=== PATIENT | female | born 1985 | race Caucasian/White ===

== ENCOUNTER 2020-04-24 06:48 | Outpatient (RCR) | payer BC, MEDICAID | END 2020-07-23 | disposition home or self-care (01) | LOC: PREOP 06:48 | PROVIDERS: ATTEND Obstetrics & Gynecology | DX: Z01.818 Encounter for other preprocedural examination (principal) ==

== ENCOUNTER 2023-07-28 12:36 | Emergency (ER) | payer SELFPAY ==
[~2023-07-28] VITALS: Ht 167 cm; Wt 69.0 kg
[2023-07-28] MEDS ORDERED: KETOROLAC INJ 15 MG/ML VIAL IVP ONE (13:00)
[2023-07-28] MEDS ORDERED: NS IV 1000 ML 1,000 ML IV SCH ×2 (13:00)
--- NOTE | 2023-07-28 13:03 | ED GU-Female ---
General Chief Complaint: - Reproductive Stated Complaint: UTI | FEVER Nursing Triage Note: PT STATES DX WITH UTI IN TUESDAY, ON ABX BUT FEELING WORSE, NV, DIFFICULTY URINATING, HX OF KIDNEY STONES Source: patient Exam Limitations: no limitations (CAROLYN LEAHY APRN) History of Present Illness Date Seen by Provider: Jul 28, 2023 Time Seen by Provider: 12:45 Initial Comments 37-year-old female presents to the ER with concern for UTI. She states that she was diagnosed with UTI on 07/06/2023 and started on Macrobid. She thinks she has taken 4 doses of the Macrobid. She reports that she is not feeling better. Reports urinary frequency, but states she has not been urinating much. Reports allover abdominal pain and left flank pain. Also reports fever up to 102.2. Complains of a pressure pain in her bladder. Denies urgency and dysuria. Reports 1 episode of vomiting and some mild nausea. Last bowel movement was today and normal. She does report history of kidney stones, and states that this feels similar to previous kidney stone. She denies history of frequent urinary tract infections, but states she has had 2 in the last 4 to 5 months. Past medical history includes endometriosis and PCOS. She does not take any medications regularly. Has been taking ibuprofen, Tylenol, Pyridium, and the Macrobid for this UTI. (CAROLYN LEAHY APRN) Allergies and Home Medications Allergies Coded Allergies: Clarithromycin (Verified Allergy, Unknown, 06/11/09) Codeine (Verified Allergy, Unknown, 03/24/06) Penicillins (Verified Allergy, Unknown, VOMITING, 12/30/08) Promethazine (Verified Allergy, Unknown, 03/24/06) Patient Home Medication List Home Medication List Reviewed: Yes (CAROLYN LEAHY APRN) Review of Systems Review of Systems Constitutional: see HPI (CAROLYN LEAHY APRN) Past Ytwjiyp-Miqdlx-Hbnfbj Hx Patient Social History Tobacco Use?: Yes Tobacco type used: Cigarettes Smoking Status: Current Everyday Smoker Substance use?: Yes Substance type: Marijuana Substance frequency: Once in a while Alcohol Use?: No (CAROLYN LEAHY APRN) Immunizations Up To Date First/Initial COVID19 Vaccinat: NO (CAROLYN LEAHY APRN) Past Medical History Surgery/Hospitalization HX: KIDNEY STONES, PCOS, ABD EXPLOR LAP 8 TIMES Last Menstrual Period: Jul 20, 2023 Reproductive Disorders: Yes (POLYCYSTIC OVARIES) (CAROLYN LEAHY APRN) Physical Exam Vital Signs Vital Signs - First Documented 07/28/23 12:44 Temp 37.1 Pulse 117 Resp 20 B/P (MAP) 133/78 (96) Pulse Ox 98 O2 Delivery Room Air (RICH LYONS MD) Vital Signs Capillary Refill : (CAROLYN LEAHY APRN) Height, Weight, BMI Height: 5'4.00" Weight: 204lbs. oz. 92.459991hx; 24.00 BMI Method: General Appearance: WD/WN, no apparent distress Neck: supple, normal inspection Cardiovascular: regular rate, rhythm Respiratory: lungs clear, normal breath sounds, no respiratory distress, no acc essory muscle use Gastrointestinal: normal bowel sounds, soft, tenderness (Generalized, worse in left upper and left lower quadrant) Back: No CVA tenderness (R); CVA tenderness (L) Extremities: normal range of motion, normal inspection Neurologic/Psychiatric: normal mood/affect Skin: normal color, warm/dry (CAROLYN LEAHY APRN) Focused Exam Lactate Level 07/28/23 13:20: Lactic Acid Level 0.69 (RICH LYONS MD) Progress/Results/Core Measures Suspected Sepsis SIRS Temperature: Pulse: 117 Respiratory Rate: 20 Laboratory Tests 07/28/23 12:45: White Blood Count 13.6H Blood Pressure 133 /78 Mean: 96 07/28/23 13:20: Lactic Acid Level 0.69 Laboratory Tests 07/28/23 12:45: Creatinine 0.66, INR Comment 1.0, Platelet Count 178, Total Bilirubin 0.4 (CAROLYN LEAHY APRN) Results/Orders Lab Results Laboratory Tests Test 07/28/23 12:45 07/28/23 12:50 07/28/23 13:20 Range/Units White Blood Count 13.6 H 4.3-11.0 10^3/uL Red Blood Count 4.38 3.80-5.11 10^6/uL Hemoglobin 13.9 11.5-16.0 g/dL Hematocrit 42 35-52 % Mean Corpuscular Volume 95 80-99 fL Mean Corpuscular Hemoglobin 32 25-34 pg Mean Corpuscular Hemoglobin Concent 34 32-36 g/dL Red Cell Distribution Width 15.3 H 10.0-14.5 % Platelet Count 178 130-400 10^3/uL Mean Platelet Volume 10.5 9.0-12.2 fL Immature Granulocyte % (Auto) 0 % Neutrophils (%) (Auto) 88 H 42-75 % Lymphocytes (%) (Auto) 6 L 12-44 % Monocytes (%) (Auto) 6 0-12 % Eosinophils (%) (Auto) 0 0-10 % Basophils (%) (Auto) 0 0-10 % Neutrophils # (Auto) 11.9 H 1.8-7.8 10^3/uL Lymphocytes # (Auto) 0.8 L 1.0-4.0 10^3/uL Monocytes # (Auto) 0.8 0.0-1.0 10^3/uL Eosinophils # (Auto) 0.1 0.0-0.3 10^3/uL Basophils # (Auto) 0.0 0.0-0.1 10^3/uL Immature Granulocyte # (Auto) 0.0 0.0-0.1 10^3/uL Neutrophils % (Manual) 89 % Lymphocytes % (Manual) 6 % Monocytes % (Manual) 5 % Eosinophils % (Manual) 0 % Basophils % (Manual) 0 % Band Neutrophils 0 % Blood Morphology Comment NORMAL Prothrombin Time 13.6 12.2-14.7 SEC INR Comment 1.0 0.8-1.4 Activated Partial Thromboplast Time 37 H 24-35 SEC Sodium Level 137 135-145 MMOL/L Potassium Level 3.4 L 3.6-5.0 MMOL/L Chloride Level 103 98-107 MMOL/L Carbon Dioxide Level 26 21-32 MMOL/L Anion Gap 8 5-14 MMOL/L Blood Urea Nitrogen 9 7-18 MG/DL Creatinine 0.66 0.60-1.30 MG/DL Estimat Glomerular Filtration Rate 116 BUN/Creatinine Ratio 14 Glucose Level 110 H 70-105 MG/DL Calcium Level 9.0 8.5-10.1 MG/DL Corrected Calcium 9.1 8.5-10.1 MG/DL Total Bilirubin 0.4 0.1-1.0 MG/DL Aspartate Amino Transf (AST/SGOT) 24 5-34 U/L Alanine Aminotransferase (ALT/SGPT) 17 0-55 U/L Alkaline Phosphatase 55 40-136 U/L Total Protein 6.9 6.4-8.2 GM/DL Albumin 3.9 3.2-4.5 GM/DL Urine Color YELLOW Urine Clarity SL CLOUDY Urine pH 6.0 5-9 Urine Specific [place] 1.025 H 1.016-1.022 Urine Protein 3+ H NEGATIVE Urine Glucose (UA) NEGATIVE NEGATIVE Urine Ketones 4+ H NEGATIVE Urine Nitrite POSITIVE H NEGATIVE Urine Bilirubin 1+ H NEGATIVE Urine Urobilinogen 2.0 < = 1.0 MG/DL Urine Leukocyte Esterase TRACE H NEGATIVE Urine RBC (Auto) 3+ H NEGATIVE Urine RBC 25-50 H /HPF Urine WBC 10-25 H /HPF Urine Squamous Epithelial Cells 10-25 H /HPF Urine Crystals /LPF Urine Bacteria LARGE H /HPF Urine Casts NONE /LPF Urine Mucus LARGE H /LPF Urine Culture Indicated YES Lactic Acid Level 0.69 0.50-2.00 MMOL/L (RICH LYONS MD) Vital Signs/I&O Capillary Refill : (CAROLYN LEAHY APRN) Blood Pressure Mean: 96 Progress Note : Progress Note Patient seen and evaluated, resting in bed, no acute distress. Based on exam and symptoms, I am concerned for septic UTI or pyelonephritis. Septic workup i nitiated including CBC, CMP, lactic acid, blood cultures x 2, urinalysis with flexor culture, urine . 2 L of IV fluids and Toradol ordered. 1359 Labs reviewed. CBC shows slightly elevated WBC 13.6. Neutrophils elevated 11.9. CMP shows slightly decreased potassium 3.4. Lactic acid normal. Coags show slightly elevated APTT 37. Urinalysis shows elevated urine specific gravity 1.025, 3+ protein, 4+ ketones, positive nitrates, 1+ bilirubin, trace leukocytes, 3+ RBCs, 10-25 WBCs, 10-25, epithelial cells, large bacteria. CT abdomen pelvis without contrast ordered to evaluate for kidney stones. Rocephin ordered for urinary tract infection. 1435 CT reviewed. It shows 3 mm nonobstructive stone involving the distal left ureter just proximal to the left UVJ. There is mild prominence of the left kidney and mild left perinephric fat stranding. Due to nephrolithiasis, pyelonephritis, and patient meeting septic criteria, I discussed with patient and patient's transfer to [place] for urology services. They agreed to transfer if recommended by urology. I called and spoke with Dr. Ibarra, urology, at [facility] in [place]. She recommends transfer and admission. She would like patient to remain n.p.o. in case she needs to do any procedures to remove the kidney stone. I am waiting on the hospitalist from [facility] to call back to accept the patient since urology does not admit. [address] Amos, hospitalist, at [facility] in [place]. He excepted patient for transfer. They will call back with the bed. (CAROLYN LEAHY APRN) Diagnostic Imaging Diagonstic Imaging: CT Plain Films/CT/US/NM/MRI: abdomen, pelvis Comments [facility], [place] NAME: DARIO AGUAYO [facility] REC#: [id number] PT STATUS: REG ER : 1985 PHYSICIAN: CAROLYN LEAHY APRN ADMIT DATE: 07/28/23/ER Signed Date of Exam:07/28/23 CT ABD/PELVIS WO(KIDNEY STONE) Clinical Indication: Patient with abdominal pain since Tuesday, mostly left flank. Hematuria. Patient has history of stones. Exam: CT exam of the abdomen and pelvis is performed without IV or oral contrast using stone protocol. Coronal and sagittal reformatted images were created. Auto Exposure Controls were utilized during the CT exam to meet ALARA standards for radiation dose reduction. Comparisons: None. Findings: Visualized lung bases: Unremarkable. Liver: Unremarkable as visualized. Gallbladder: Unremarkable. Pancreas: Unremarkable as visualized. Spleen: Unremarkable as visualized. Adrenal glands: Unremarkable. Kidneys/ ureters: There is a 3 mm stone in the region of the distal left ureter proximally, near the region of the left UVJ. There is no significant hydronephrosis. There is mild fat stranding adjacent to the left kidney and slight enlargement of the left kidney. There are no other urinary tract stones seen. Aorta: Unremarkable as visualized. Intraabdominal/ retroperitoneal contents: Unremarkable. Intestines: Unremarkable as visualized. Appendix: Unremarkable. Bladder: Unremarkable as visualized. Pelvic organs: Unremarkable as visualized. IUD is seen within the uterus. There is minimal free fluid in the pelvis, likely physiologic. Extra abdominal/ pelvis regions: Unremarkable. Abdominal wall: Unremarkable. Bones: Unremarkable. Impression: 1: There is a 3 mm nonobstructive stone involving the distal left ureter just proximal to the left UVJ. There is mild prominence of the left kidney and mild left perinephric fat stranding. 2: The remainder of this exam is unremarkable. Dictated by: Dictated on workstation # [id number] Dict: 07/28/23 1358 Trans: 07/28/23 1405 [facility] [id number] Interpreted by: AMAN LARES MD Electronically signed by: AMAN LARES MD 07/28/23 9386 (CAROLYN LEAHY APRN) Departure Impression Primary Impression: Pyelonephritis Additional Impressions: Sepsis Qualified Codes: A41.9 - Sepsis, unspecified organism Ureteral stone Disposition: XFER SHT-TRM HOSP Condition: Stable Transfer Transfer Reason: Exceeds level of care Time Spoke to Accepting Phy: 15:[address] Amos, hospitalist, accepted patient for transfer. Dr. Ibarra, urology, was consulted. Transfer Time: 15:25 Transfer Facility: [facility] Method of Transfer: Private Vehicle (CAROLYN LEAHY APRN) Departure-Patient Inst. Referrals: [facility] [place] Primary Care Physician ATTENDING PHYSICIAN NOTE: I was physically present as attending physician in the emergency department during the care of this patient. I reviewed the clinical history with Carolyn Leahy NP. We discussed and reviewed exam findings, labs, vital signs, imaging, and treatment plan. Patient met septic criteria. I recommended admission and urology consult. I did no personally interview or examine this patient. I was not otherwise directly involved in the decision making or delivery of care for this patient. (RICH LYONS MD) CAROLYN LEAHY APRN Jul 28, 2023 13:03 RICH LYONS MD Jul 29, 2023 13:49
[2023-07-28 13:09] LABS: BASOPHILS % (AUTO) 0 % (0-10); EOSINOPHILS # (AUTO) 0.1 10^3/uL (0.0-0.3); EOSINOPHILS % (AUTO) 0 % (0-10); HEMATOCRIT 42 % (35-52); HEMOGLOBIN 13.9 g/dL (11.5-16.0); LYMPHOCYTES # (AUTO) 0.8 10^3/uL (1.0-4.0); LYMPHOCYTES % (AUTO) 6 % (12-44); MEAN CORPUSCULAR HEMOGLOBIN 32 pg (25-34); MEAN CORPUSCULAR HGB CONC 34 g/dL (32-36); MEAN CORPUSCULAR VOLUME 95 fL (80-99); MEAN PLATELET VOLUME 10.5 fL (9.0-12.2); MONOCYTES # (AUTO) 0.8 10^3/uL (0.0-1.0); MONOCYTES % (AUTO) 6 % (0-12); NEUTROPHILS # (AUTO) 11.9 10^3/uL (1.8-7.8); NEUTROPHILS % (AUTO) 88 % (42-75); PLATELET COUNT 178 10^3/uL (130-400); WHITE BLOOD COUNT 13.6 10^3/uL (4.3-11.0)
[2023-07-28 13:15] LABS: ALBUMIN 3.9 GM/DL (3.2-4.5)
[2023-07-28 13:16] LABS: POTASSIUM 3.4 MMOL/L (3.6-5.0)
[2023-07-28 13:18] LABS: TOTAL PROTEIN 6.9 GM/DL (6.4-8.2)
[2023-07-28 13:19] LABS: BACTERIA,URINE LARGE /HPF; BILIRUBIN,URINE 1+ (NEGATIVE); CLARITY,URINE SL CLOUDY; COLOR,URINE YELLOW; GLUCOSE, URINE (UA) NEGATIVE (NEGATIVE); KETONES,URINE 4+ (NEGATIVE); LEUKOCYTE ESTERASE ,URINE TRACE (NEGATIVE); NITRITE,URINE POSITIVE (NEGATIVE); PROTEIN,URINE 3+ (NEGATIVE); RBC,URINE 25-50 /HPF
[2023-07-28 13:20] LABS: BILIRUBIN,TOTAL 0.4 MG/DL (0.1-1.0)
[2023-07-28 13:22] LABS: CREATININE SERUM 0.66 MG/DL (0.60-1.30)
[2023-07-28 13:23] LABS: PROTHROMBIN TIME PATIENT 13.6 SEC (12.2-14.7)
[2023-07-28 13:35] LABS: BAND NEUTROPHILS 0 %; BASOPHILS % (MANUAL) 0 %; EOSINOPHILS % (MANUAL) 0 %; LYMPHOCYTES % (MANUAL) 6 %; MONOCYTES % (MANUAL) 5 %; NEUTROPHILS % (MANUAL) 89 %; RBC MORPH NORMAL
[2023-07-28] MEDS ORDERED: cefTRIAXone IV/IM 1,000 MG in NS (IVPB) 50 ML 50 ML IV ONE (14:00)
--- NOTE | 2023-07-28 14:05 | Diagnostic Imaging Report ---
Clinical Indication: Patient with abdominal pain since Tuesday, mostly left flank. Hematuria. Patient has history of stones. Exam: CT exam of the abdomen and pelvis is performed without IV or oral contrast using stone protocol. Coronal and sagittal reformatted images were created. Auto Exposure Controls were utilized during the CT exam to meet ALARA standards for radiation dose reduction. Comparisons: None. Findings: Visualized lung bases: Unremarkable. Liver: Unremarkable as visualized. Gallbladder: Unremarkable. Pancreas: Unremarkable as visualized. Spleen: Unremarkable as visualized. Adrenal glands: Unremarkable. Kidneys/ ureters: There is a 3 mm stone in the region of the distal left ureter proximally, near the region of the left UVJ. There is no significant hydronephrosis. There is mild fat stranding adjacent to the left kidney and slight enlargement of the left kidney. There are no other urinary tract stones seen. Aorta: Unremarkable as visualized. Intraabdominal/ retroperitoneal contents: Unremarkable. Intestines: Unremarkable as visualized. Appendix: Unremarkable. Bladder: Unremarkable as visualized. Pelvic organs: Unremarkable as visualized. IUD is seen within the uterus. There is minimal free fluid in the pelvis, likely physiologic. Extra abdominal/ pelvis regions: Unremarkable. Abdominal wall: Unremarkable. Bones: Unremarkable. Impression: 1: There is a 3 mm nonobstructive stone involving the distal left ureter just proximal to the left UVJ. There is mild prominence of the left kidney and mild left perinephric fat stranding. 2: The remainder of this exam is unremarkable. Dictated by: Dictated on workstation # [id number]
[2023-07-28] MEDS ORDERED: fentaNYL INJECTION 100 MCG/2 ML VIAL IVP ONE ×2 (15:00→16:15)
[2023-07-28] MEDS ORDERED: ONDANSETRON INJECTION 4 MG/2 ML (SDV) IVP ONE (15:00)
[2023-07-28 16:16] VITALS: BP 108/69
== END 2023-07-28 16:15 | disposition short-term general hospital (02) ==
LOC: EDUNIT# 12:36 → ER 12:39
DX: A41.9 Sepsis, unspecified organism (principal); N20.1 Calculus of ureter; F17.210 Nicotine dependence, cigarettes, uncomplicated
CPT/HCPCS: 36415; 74176; 80053; 81000; 83605; 84703; 85007; 85027; 85610; 85730; 87040; 87077; 87088; 87186